=== PATIENT | male | born 1965 | race Caucasian/White ===

== ENCOUNTER 2024-01-21 14:07 | Emergency (ER) | payer OTHER, SELFPAY ==
--- NOTE | 2024-01-21 14:12 | ECG_ITS ---
Test Reason : cp Blood Pressure : / mmHG Vent. Rate : 078 BPM Atrial Rate : 078 BPM P-R Int : 174 ms QRS Dur : 090 ms QT Int : 396 ms P-R-T Axes : 026 045 -09 degrees QTc Int : 451 ms Normal sinus rhythm Normal ECG No previous ECGs available Referred By: Anup Jiménez Electronically Signed By:YUNIER SIMS
[2024-01-21 14:14] VITALS: BP 169/97; PULSE 77; RESP 18; TEMP 36.8; O2SAT 98; BMI 30.5
--- NOTE | 2024-01-21 14:14 | ED.CHESTPAIN ---
HPI - Chest Pain General Chief Complaint: Chest Pain Stated Complaint: dizzy chest discomfort Time Seen by Provider: 01/22/24 00:24 Source: patient Mode of arrival: ambulatory Limitations: no limitations History of Present Illness HPI narrative: Patient is a 58-year-old male who presents emergency department for evaluation. He reports at approximately 10:30 this morning while at work he had an episode of feeling lightheaded and slightly dizzy. He sat down and relaxed and his symptoms improved were still press. He reports that he decided to have lunch eating liver and onions and then he developed mid lower chest discomfort described as a burning sensation. He took Pepto-Bismol and his symptoms did slowly start to improve. He reports that he is not seen a primary care provider for at least 3-4 years, he has an upcoming appointment in March. He reports a history in the past of elevated blood pressure readings has never been on vacation for them. He also states he has not noticed any increase any heartburn/acid reflux symptoms recently, which he is typically taking Pepto-Bismol with improvement. He denies headache, vision changes, neck pain, shortness of breath, nausea, vomiting, abdominal pain, genitourinary symptoms, numbness or tingling of the extremities. He reports that all his symptoms had resolved while in the waiting room and he is currently asymptomatic Related Data Previous Rx's ?Medication ?Instructions ?Recorded hydrochlorothiazide 12.5 mg tablet 12.5 mg PO DAILY #90 tabs 01/22/24 Allergies Allergy/AdvReac Type Severity Reaction Status Date / Time No Known Allergies Allergy Verified 01/21/24 14:17 Review of Systems Review of Systems: Yes all other systems are reviewed and are negative [facility] Past Medical History Attestation statement: The following information was validated with the patient. Source: old records reviewed Social History Social History Smoked in Last 30 Days: No Advance Directives: No Advance Directives Information Provided: Yes Physical Exam Vital Signs: Vital Signs: Last Vital Signs Temp 98.0 F 01/21/24 21:45 Pulse 64 01/21/24 21:45 Resp 20 01/21/24 21:45 BP 176/94 H 01/22/24 01:14 Pulse Ox 99 01/21/24 21:45 O2 Del Method Room Air 01/21/24 21:45 BMI result Body Mass Index 30.5 Appearance: Alert.?Oriented to person, place and time. No acute distress.?Normal affect. Eyes: Pupils equal, round and reactive to light.? ENT: Pharynx normal.?? Neck: Normal inspection.? Neck supple.?? CVS: Heart sounds normal. Normal heart rate and rhythm.? Pulses normal.?? Respiratory: No respiratory distress.? Lung sounds clear to auscultation bilaterally?? Abdomen: Soft and non-tender. Normoactive bowel sounds. No pulsatile mass.?? Skin: Skin warm and dry.? Normal skin color.? Extremities: No lower extremity edema.? Neuro: Moves all extremities spontaneously. Sensation intact bilaterally. Ambulates with normal steady gait. Course Course Course Narrative: This is an RME done by CEZAR Jiménez: Additional HPI, ROS, PE not included below will be deferred to primary provider. 58 year old male with hx of HTN, high cholesterol presents with lightheadedness and drowsiness with a weird feeling in my chest starting around 10:30 am. Reports it is not chest pain or tightness but just feels off . Began after eating. No recent travel. Denies sob, fever, chills, numbness, weakness, tingling. Appearance: Alert.? Oriented X3.? No acute cardiopulmonary distress distress.? Head: Normocephalic, atraumatic, no step-offs or deformities CVS: Pulses normal.? Respiratory: No respiratory distress.? Abdomen: Soft and nontender.? Skin: ? Normal skin color. Extremities: 5/5 strength to bilateral upper and lower extremities Neuro: Oriented X 3.? No motor deficit.? No sensory deficit. Medical Decision Making Medical Decision Making MDM Narrative: Patient is a 58-year-old male who presents emergency department for evaluation of dizziness and chest discomfort described as a burning sensation as per HPI. Symptoms have resolved at the time of my evaluation and he is currently asymptomatic. Reviewed workup obtained prior to my assumption of care; CBC is without leukocytosis anemia or thrombocytopenia. No electrolyte derangement. LFTs within normal range. High sensitive troponin in normal range x2 EKG reveals normal sinus rhythm with ventricular rate of 78, QTC 451, no ST elevation, no ST depression, symptoms not likely to be secondary to ACS. His abdominal examination is benign, I suspect that the pain he experienced earlier was due to heartburn/acid reflux resolved with Pepto-Bismol. We discussed a trial of [id number] omeprazole 20 mg daily should he find that his acid reflux symptoms are occurring more frequently and he verbalized understanding of this. We also discussed a diet free from exacerbating foods. He is noted to have elevated blood pressure readings while in the emergency department, reports a history of elevated readings in the past usually with systolic blood pressure 1 40s-150s, denies having been on antihypertensives in the past. Manual blood pressure of 176/94. No sign of end-organ dysfunction. He does not have an appointment with his new primary care provider until March, given his elevated readings today and elevated readings in the past, used shared decision making with patient and he was started on hydrochlorothiazide 12.5 mg. Advised to keep a record of his blood pressure readings and instructed on appropriate technique to check blood pressure. Discussed worrisome signs and symptoms that would warrant re-evaluation in the emergency department. All questions answered. Stable for discharge. Differential Diagnosis Differential Diagnoses: The differential diagnosis associated with the presentation includes (See narrative above) Admission/Observation Consideration of admission/observation: Escalation of care including admission/observation considered (See narrative above) Lab Data MDM Lab Attestation statement: I reviewed the patient's lab results. (See narrative above) 01/21/24 14:38 01/21/24 14:38 Labs: Lab Results 01/21/24 01/21/24 Range/Units 14:38 18:13 WBC 8.8 (4.8-10.8) X10*3/uL RBC 5.30 (4.60-5.80) X10*6/uL Hgb 15.7 (14.0-18.0) g/dl Hct 46.1 (42.0-52.0) % MCV 87.0 (80.0-98.0) fL MCH 29.6 (27.0-33.0) pg MCHC 34.1 (31.0-36.0) g/dl RDW 13.2 (11.0-16.0) % Plt Count 288 (160-400) X10*3/uL MPV 10.1 (9.4-12.4) fL Immature Gran % (Auto) 0.2 (0.0-0.4) % Neut % (Auto) 75.2 H (45-73) % Lymph % (Auto) 20.1 (20-40) % [place] % (Auto) 3.8 (2-11) % Eos % (Auto) 0.2 (0-4) % Baso % (Auto) 0.5 (0-2) % Lymph # (Auto) 1.8 (1.2-4.9) X10*3/uL [place] # (Auto) 0.3 (0.1-1.2) X10*3/uL Eos # (Auto) 0.0 (0.0-0.4) X10*3/uL Baso # (Auto) 0.0 (0.0-0.2) X10*3/uL Abs Immat Gran (auto) 0.02 (0.00-0.03) X10*3/uL Absolute Neuts (auto) 6.6 (2.0-8.3) x10*3/uL Absolute Nucleated RBC 0.000 (0.0-0.012) X10*3/uL Nucleated RBC % (auto) 0.0 (0.0-0.2) /100WBC PT 12.3 (11.1-13.3) SEC INR 1.0 (0.9-1.1) Sodium 142 (135-145) mmol/L Potassium 3.7 (3.3-5.1) mmol/L Chloride 108 (96-108) mmol/L Carbon Dioxide 22 (22-29) mmol/L Anion Gap 16 (12-20) BUN 16 (9-16) mg/dL Creatinine 0.81 (0.5-1.4) mg/dL Estim Creat Clear Calc 121.3 Estimated GFR > 60 Random Glucose 110 (60-115) mg/dL Calcium 10.0 (8.4-10.2) mg/dL Magnesium 2.0 (1.6-2.6) mg/dL Total Bilirubin 0.6 (0.0-1.0) mg/dL AST 16 (5-37) U/L ALT 19 (0-40) U/L Alkaline Phosphatase 51 (39-117) U/L Troponin I High Sens 9.3 10.0 (<3.5-35.0) ng/L B-Natriuretic Peptide < 10 (<100) pg/mL Total Protein 7.9 (6.5-8.0) g/dL Albumin 4.6 (3.5-5.0) g/dL Independent Historian Clinical information obtained from an independent historian. History obtained from or confirmed by: Spouse Prescription Management I considered prescription management with: Other (See narrative above) Discharge Plan Discharge Clinical Impression: Hypertension Patient Disposition: Home, Self-Care Instructions: Hypertension (ED) Additional Instructions: As discussed, a prescription for a blood pressure medication was sent to your pharmacy; hydrochlorothiazide. Please take this daily. Purchase a blood pressure cuff so that you may keep a record of your blood pressure imaging, do this daily for the next 2 weeks, and then you may transition to weekly. This can be reviewed with the a care provider at your upcoming appointment. Return back to emergency department any new or worsening symptoms or concerns. Prescriptions: New hydrochlorothiazide 12.5 mg tablet 12.5 mg PO DAILY Qty: 90 0RF Referrals: Brian Melendez MD [Primary Care Provider] - Print Language: Indian
[2024-01-21 14:42] LABS: MANUAL DIFF FLAG NO
[2024-01-21 14:49] LABS: Prothrombin Time 12.3 SEC (11.1-13.3)
[2024-01-21 14:52] LABS: Basophils Percent Auto 0.5 % (0-2); Eosinophils Percent Auto 0.2 % (0-4); Hematocrit 46.1 % (42.0-52.0); Hemoglobin 15.7 g/dl (14.0-18.0); Imm Gran Abs Auto 0.02 X10*3/uL (0.00-0.03); Imm Gran Pct Auto 0.2 % (0.0-0.4); Lymphocytes Absolute Auto 1.8 X10*3/uL (1.2-4.9); Lymphocytes Percent Auto 20.1 % (20-40); Mean Corpuscular HGB Conc 34.1 g/dl (31.0-36.0); Mean Corpuscular Hemoglobin 29.6 pg (27.0-33.0); Mean Platelet Volume 10.1 fL (9.4-12.4); Monocytes Absolute Auto 0.3 X10*3/uL (0.1-1.2); Monocytes Percent Auto 3.8 % (2-11); Neutrophils Absolute Auto 6.6 x10*3/uL (2.0-8.3); Neutrophils Percent Auto 75.2 % (45-73); Platelet Count 288 X10*3/uL (160-400); Red Cell Distribution Width 13.2 % (11.0-16.0); White Blood Count 8.8 X10*3/uL (4.8-10.8)
[2024-01-21 14:58] LABS: Alanine Aminotransferase 19 U/L (0-40); Albumin Level 4.6 g/dL (3.5-5.0); Alkaline Phosphatase 51 U/L (39-117); Anion Gap 16 (12-20); Aspartate Amino Transferase 16 U/L (5-37); Bilirubin Total 0.6 mg/dL (0.0-1.0); Blood Urea Nitrogen 16 mg/dL (9-16); Carbon Dioxide 22 mmol/L (22-29); Chloride 108 mmol/L (96-108); Creatinine Clr Calc Pharmacy 121.3; Estimated Glomerular Filt Rate > 60; Glucose Random 110 mg/dL (60-115); Potassium 3.7 mmol/L (3.3-5.1); Sodium 142 mmol/L (135-145); Total Protein 7.9 g/dL (6.5-8.0)
[2024-01-21 15:06] LABS: Troponin-I High Sensitivity 9.3 ng/L (<3.5-35.0)
[2024-01-21 15:07] LABS: B Type Natriuretic Peptide < 10 pg/mL (<100)
[2024-01-21 21:45] VITALS: BP 191/108; PULSE 64; RESP 20; TEMP 36.7; O2SAT 99
[2024-01-22 01:14] VITALS: BP 176/94; PULSE 61; RESP 16; TEMP 36.7; O2SAT 97
[2024-01-22 01:58] VITALS: BP 176/94; PULSE 61; RESP 16; TEMP 36.7; O2SAT 97
== END 2024-01-22 02:00 | disposition home or self-care (01) ==
PROVIDERS: Physician Assistant; Emergency Provider Emergency Medicine Emergency Medical Services; PCP Internal Medicine
DX: I10 Essential (primary) hypertension (principal); R42 Dizziness and giddiness; R07.9 Chest pain, unspecified
CPT/HCPCS: 36415; 80053; 83735; 83880; 84484; 85025; 85610; 93005; 99283; 99284

== ENCOUNTER → 2024-01-21 14:12 | Outpatient (BNV) | payer SELFPAY | PROVIDERS: PCP Internal Medicine; Visit Provider Internal Medicine | DX: R07.9 Chest pain, unspecified (principal) | CPT/HCPCS: 93010 ==